=== PATIENT | male | born 1985 | race Caucasian/White ===

== ENCOUNTER 2023-03-28 06:33 | Emergency (ER) | payer BC, SELFPAY ==
--- NOTE | 2023-03-28 06:40 | DI.CT.S_ITS ---
PROCEDURE: CT HEAD/BRAIN WO CON INDICATIONS: HEADACHES, NEW PATTERN TECHNIQUE: Noncontrast 4.5 mm thick angled axial sections acquired from the foramen magnum to the vertex, with coronal and sagittal reformats. For radiation dose reduction, the following was used: automated exposure control, adjustment of mA and/or kV according to patient size. COMPARISON: None. FINDINGS: Image quality: Diagnostic. CSF spaces: Basal cisterns are patent. No extra-axial fluid collections. Ventricles are normal in size and shape. Brain: No midline shift. No intracranial masses or hemorrhage. [place]-white matter interface is normal. Skull and face: Calvarium and visualized facial bones are intact, without suspicious lesions. Sinuses: There is mucous retention cyst in the right ethmoidal sinus. The mastoids are clear. IMPRESSION: 1. No acute intracranial pathology. 2. Right ethmoidal sinus disease. 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 Dictated by: Bri Osborne M.D. on 03/28/2023 at 7:58 Approved by: Bri Osborne M.D. on 03/28/2023 at 7:59
[2023-03-28 06:41] VITALS: BP 140/73; PULSE 68; RESP 16; TEMP 36.3; O2SAT 99; BMI 29.0
--- NOTE | 2023-03-28 06:41 | ED_ITS ---
HPI - General Adult <Radha Ye MD - Last Filed: 03/30/23 18:14> General Chief complaint: Dizziness Stated complaint: tingling sensation left side, dizziness, Time Seen by Provider: 03/28/23 06:34 History of Present Illness HPI narrative: 37-year-old male with no reported past medical history presents by private vehicle from home for headache, intermittent vertigo, nausea, and abnormal sensation on his left-hand side since last night. Patient states that yesterday symptoms were more severe but spontaneously resolved after a short time. As he was driving to work today his symptoms seemed to recurred and so he came to the ER for evaluation. States that he has felt overall generally poorly for the last several months, but yesterday's symptoms are new. He states that his left arm feels ?empty? and tingly. Denies numbness, weakness, blurred vision, syncope, trauma. Related Data Previous Rx's Medication Instructions Recorded meclizine 25 mg chewable tablet 25 mg PO QID PRN dizziness #20 tabs 03/28/23 ondansetron 4 mg disintegrating 4 mg PO QID PRN nausea and 03/28/23 tablet vomiting #10 tabs Allergies Allergy/AdvReac Type Severity Reaction Status Date / Time No Known Drug Allergies Allergy Unverified 09/02/21 17:22 Review of Systems <Radha Ye MD - Last Filed: 03/30/23 18:14> Review of Systems Narrative: Negative except as noted above Patient History <Radha Ye MD - Last Filed: 03/30/23 18:14> Social History Smoking Status: Former smoker Smoking Status: Former smoker Exam <Radha Ye MD - Last Filed: 03/30/23 18:14> Narrative Exam Narrative: Const: Awake, alert, no acute distress, nontoxic appearing Eyes: PERRL, EOMI, conjunctiva normal ENT: Atraumatic, dentition normal, mucous membranes moist, tympanic membranes normal bilaterally Cardiac: regular rate, regular rhythm RESP: unlabored, clear bilaterally, no wheezing GI: Atraumatic, soft, nontender, nondistended, no rebound, no guarding MSK: Atraumatic, full range of motion, pulses equal Skin: Warm, Dry, intact, no rashes Neuro: AO x3, CN II-XII grossly intact, moves all extremities, gait normal Psych: affect normal, mood normal, not suicidal, not homicidal Initial Vital Signs Initial Vital Signs: Vital Signs Temperature 97.4 F L 03/28/23 06:41 Pulse Rate 68 03/28/23 06:41 Respiratory Rate 16 03/28/23 06:41 Blood Pressure 140/73 03/28/23 06:41 Pulse Oximetry 99 03/28/23 06:41 Oxygen Delivery Method Room Air 03/28/23 06:41 <Radha Lutz DO - Last Filed: 03/28/23 08:26> Initial Vital Signs Initial Vital Signs: Vital Signs Temperature 97.4 F L 03/28/23 06:41 Pulse Rate 68 03/28/23 06:41 Respiratory Rate 16 03/28/23 06:41 Blood Pressure 140/73 03/28/23 06:41 Pulse Oximetry 99 03/28/23 06:41 Oxygen Delivery Method Room Air 03/28/23 06:41 Course <Radha Ye MD - Last Filed: 03/30/23 18:14> Orders Ordered: Discontinued Medications Sodium Chloride (Normal Saline 0.9%) 1,000 mls @ 1,000 mls/hr IV BOLUS ONE Stop: 03/28/23 07:39 Last Infusion: 03/28/23 08:11 Dose: Infused Documented By: Admin: 03/28/23 06:56 Dose: 1,000 mls/hr Documented By: Meclizine HCl (Meclizine Hcl 12.5 Mg Tablet) 50 mg PO NOW ONE Stop: 03/28/23 06:41 Last Admin: 03/28/23 06:55 Dose: 50 mg Documented By: AB Ondansetron HCl (Ondansetron 4 Mg/2 Ml Inj) 4 mg IV NOW ONE Stop: 03/28/23 06:41 Last Admin: 03/28/23 06:55 Dose: 4 mg Documented By: AB Vital Signs Vital signs: Vital Signs - 8 hr 03/28/23 06:41 03/28/23 07:10 03/28/23 07:30 Temperature 97.4 F L Pulse Rate 68 56 L 53 L Respiratory Rate 16 Blood Pressure 140/73 Pulse Oximetry 99 99 99 Oxygen Delivery Method Room Air 03/28/23 07:30 03/28/23 08:00 03/28/23 08:00 Temperature Pulse Rate 56 L Respiratory Rate Blood Pressure 112/69 110/63 Pulse Oximetry 99 Oxygen Delivery Method <Radha Lutz DO - Last Filed: 03/28/23 08:26> Orders Ordered: Discontinued Medications Sodium Chloride (Normal Saline 0.9%) 1,000 mls @ 1,000 mls/hr IV BOLUS ONE Stop: 03/28/23 07:39 Last Infusion: 03/28/23 08:11 Dose: Infused Documented By: Admin: 03/28/23 06:56 Dose: 1,000 mls/hr Documented By: AB Meclizine HCl (Meclizine Hcl 12.5 Mg Tablet) 50 mg PO NOW ONE Stop: 03/28/23 06:41 Last Admin: 03/28/23 06:55 Dose: 50 mg Documented By: AB Ondansetron HCl (Ondansetron 4 Mg/2 Ml Inj) 4 mg IV NOW ONE Stop: 03/28/23 06:41 Last Admin: 03/28/23 06:55 Dose: 4 mg Documented By: AB Vital Signs Vital signs: Vital Signs - 8 hr 03/28/23 06:41 03/28/23 07:10 03/28/23 07:30 Temperature 97.4 F L Pulse Rate 68 56 L 53 L Respiratory Rate 16 Blood Pressure 140/73 Pulse Oximetry 99 99 99 Oxygen Delivery Method Room Air 03/28/23 07:30 03/28/23 08:00 03/28/23 08:00 Temperature Pulse Rate 56 L Respiratory Rate Blood Pressure 112/69 110/63 Pulse Oximetry 99 Oxygen Delivery Method Medical Decision Making <Radha Ye MD - Last Filed: 03/30/23 18:14> Lab Data 03/28/23 07:05 03/28/23 07:05 Labs: Lab Results 03/28/23 Range/Units 07:05 WBC 7.1 (4.5-11.0) X10^3/uL RBC 5.20 (4.5-5.9) X10^6/uL Hgb 16.2 (13.5-17.5) g/dL Hct 47.0 (41-53) % MCV 90.3 (80-100) fL MCH 31.2 (26-34) PG MCHC 34.6 (30-36) % RDW 13.0 (11.6-14.8) % Plt Count 287 (150-400) X10^3/uL Neut % (Auto) 45.3 L (50-75) % Lymph % (Auto) 41.2 H (25-40) % [place] % (Auto) 10.3 (3-14) % Eos % (Auto) 2.6 (2-4) % Baso % (Auto) 0.6 (0-2) % Neut # (Auto) 3200 (6718-5830) /uL Lymph # (Auto) 2900 (7055-2325) /uL [place] # (Auto) 700 (0-900) /uL Eos # (Auto) 200 (0-450) /uL Baso # (Auto) 0 (0-100) /uL Sodium 139 (137-145) mmol/L Potassium 4.1 (3.4-5.1) mmol/L Chloride 106 (98-107) mmol/L Carbon Dioxide 23 (22-32) mmol/L BUN 20 (9-20) mg/dL Creatinine 1.22 (0.66-1.25) mg/dL Estimated GFR > 60 (>60) mL/min BUN/Creatinine Ratio 16.4 (6-22) Glucose 95 (70-100) mg/dL Calcium 9.4 (8.4-10.2) mg/dL Total Bilirubin 0.5 (0.2-1.3) mg/dL AST 35 (17-59) IU/L ALT 44 (<50) IU/L Alkaline Phosphatase 95 (38-126) U/L Total Protein 7.8 (6.3-8.2) g/dL Albumin 4.2 (3.5-5.0) g/dL Globulin 3.6 (1.7-4.1) g/dL Albumin/Globulin Ratio 1.2 (1.0-2.8) TSH 1.92 (0.47-4.68) uIU/mL Urine Color Yellow Urine Appearance Clear Urine pH 5.5 (4.5-8.0) Ur Specific [place] 1.025 (1.000-1.035) Urine Protein Negative (Negative) Urine Glucose (UA) Negative (Negative) g/dL Urine Ketones Negative (NEGATIVE) Urine Occult Blood Negative (Negative) Urine Nitrate Negative (Negative) Urine Bilirubin Negative (NEGATIVE) Urine Urobilinogen 0.2 (0.2) E.U./dL Ur Leukocyte Esterase Negative (NEGATIVE) Urine RBC None seen (0-5/HPF) Urine WBC None seen (0-5/HPF) Ur Squamous Epith Cells None seen (0-5/HPF) Urine Bacteria None seen (None) Ur Culture Indicated? Cult not indicated Vol Urine Centrifuged 10ml (spun) Urine Dip Bedside Urine Glucose Negative Bedside Urine Bilirubin - Negative Bedside Urine Ketone - Negative Urine Specific [place] 1.030 Bedside Urine Occult Blood - Negative Bedside Urine pH 6.0 Bedside Urine Protein - Negative Bedside Urine Urobilinogen - Negative Bedside Urine Nitrite - Negative Bedside Urine Leukocytes - Negative Esterase Point of care testing: Urine Dip Bedside Urine Glucose Negative Bedside Urine Bilirubin - Negative Bedside Urine Ketone - Negative Urine Specific [place] 1.030 Bedside Urine Occult Blood - Negative Bedside Urine pH 6.0 Bedside Urine Protein - Negative Bedside Urine Urobilinogen - Negative Bedside Urine Nitrite - Negative Bedside Urine Leukocytes - Negative Esterase MDM Narrative Medical decision making narrative: Well-appearing patient with headache, vertigo, nausea, left upper extremity ?empty sensation. On exam patient's NIH score is 0, he has intact sensation, no ataxia, gait is normal, no weakness. Since he was complaining of abnormal pattern of headaches we will order a CT scan of the brain and we will order basic lab work. IV fluids, Zofran, meclizine to be ordered for patient's symptoms. Care of patient signed to Dr. Lutz at 0700. <Radha Lutz, DO - Last Filed: 03/28/23 08:26> Lab Data Labs: Lab Results 03/28/23 Range/Units 07:05 WBC 7.1 (4.5-11.0) X10^3/uL RBC 5.20 (4.5-5.9) X10^6/uL Hgb 16.2 (13.5-17.5) g/dL Hct 47.0 (41-53) % MCV 90.3 (80-100) fL MCH 31.2 (26-34) PG MCHC 34.6 (30-36) % RDW 13.0 (11.6-14.8) % Plt Count 287 (150-400) X10^3/uL Neut % (Auto) 45.3 L (50-75) % Lymph % (Auto) 41.2 H (25-40) % [place] % (Auto) 10.3 (3-14) % Eos % (Auto) 2.6 (2-4) % Baso % (Auto) 0.6 (0-2) % Neut # (Auto) 3200 (2290-3979) /uL Lymph # (Auto) 2900 (4824-8666) /uL [place] # (Auto) 700 (0-900) /uL Eos # (Auto) 200 (0-450) /uL Baso # (Auto) 0 (0-100) /uL Sodium 139 (137-145) mmol/L Potassium 4.1 (3.4-5.1) mmol/L Chloride 106 (98-107) mmol/L Carbon Dioxide 23 (22-32) mmol/L BUN 20 (9-20) mg/dL Creatinine 1.22 (0.66-1.25) mg/dL Estimated GFR > 60 (>60) mL/min BUN/Creatinine Ratio 16.4 (6-22) Glucose 95 (70-100) mg/dL Calcium 9.4 (8.4-10.2) mg/dL Total Bilirubin 0.5 (0.2-1.3) mg/dL AST 35 (17-59) IU/L ALT 44 (<50) IU/L Alkaline Phosphatase 95 (38-126) U/L Total Protein 7.8 (6.3-8.2) g/dL Albumin 4.2 (3.5-5.0) g/dL Globulin 3.6 (1.7-4.1) g/dL Albumin/Globulin Ratio 1.2 (1.0-2.8) TSH 1.92 (0.47-4.68) uIU/mL Urine Color Yellow Urine Appearance Clear Urine pH 5.5 (4.5-8.0) Ur Specific [place] 1.025 (1.000-1.035) Urine Protein Negative (Negative) Urine Glucose (UA) Negative (Negative) g/dL Urine Ketones Negative (NEGATIVE) Urine Occult Blood Negative (Negative) Urine Nitrate Negative (Negative) Urine Bilirubin Negative (NEGATIVE) Urine Urobilinogen 0.2 (0.2) E.U./dL Ur Leukocyte Esterase Negative (NEGATIVE) Urine RBC None seen (0-5/HPF) Urine WBC None seen (0-5/HPF) Ur Squamous Epith Cells None seen (0-5/HPF) Urine Bacteria None seen (None) Ur Culture Indicated? Cult not indicated Vol Urine Centrifuged 10ml (spun) Urine Dip Bedside Urine Glucose Negative Bedside Urine Bilirubin - Negative Bedside Urine Ketone - Negative Urine Specific [place] 1.030 Bedside Urine Occult Blood - Negative Bedside Urine pH 6.0 Bedside Urine Protein - Negative Bedside Urine Urobilinogen - Negative Bedside Urine Nitrite - Negative Bedside Urine Leukocytes - Negative Esterase Point of care testing: Urine Dip Bedside Urine Glucose Negative Bedside Urine Bilirubin - Negative Bedside Urine Ketone - Negative Urine Specific [place] 1.030 Bedside Urine Occult Blood - Negative Bedside Urine pH 6.0 Bedside Urine Protein - Negative Bedside Urine Urobilinogen - Negative Bedside Urine Nitrite - Negative Bedside Urine Leukocytes - Negative Esterase Imaging Data CT scan - head: Radiologist's Impression: Prelim overnight Radiology read no acute intracranial abnormality, ethmoid sinus disease. [facility] Narrative Medical decision making narrative: Well-appearing patient with headache, vertigo, nausea, left upper extremity ?empty sensation. On exam patient's NIH score is 0, he has intact sensation, no ataxia, gait is normal, no weakness. Since he was complaining of abnormal pattern of headaches we will order a CT scan of the brain and we will order basic lab work. IV fluids, Zofran, meclizine to be ordered for patient's symptoms. Care of patient signed to Dr. Lutz at 0700. 03/28/23 Nelda: Patient signed out to myself by Dr. Ye. Patient seen and evaluated by myself. Patient is on bupropion but no other regular medications did stopped smoking several days ago but not using any adjuncts. No prior surgeries, no known drug allergies besides a topical antifungal. Recent sensation of tobacco use, no regular alcohol use, no IV drugs or recreational drugs. He is accompanied by his . Head CT shows ethmoid sinus disease but no other acute change. Labs CBC shows normal white count hemoglobin of 16 platelets of 287, predominance lymphocyte percentage. CMP shows no acute change. TSH is normal UA shows no acute change. Patient is feeling improved after fluids, Zofran and meclizine. He notes he has had a little bit of vertigo type symptoms in the past but much milder in his labs or electrolytes were all off at that time. Otherwise has NIH score of 0 with abnormal pattern of headaches and head CT was found to be negative except for some ethmoid sinus disease which I reviewed with patient. No acute neurologic changes patient is felt appropriate for discharge home. Plan for follow up with primary as necessary, reviewed return precautions. Discharge Plan Departure Patient Disposition: Home Clinical Impression: Vertigo Instructions: DI for Vertigo Activity Restrictions/Additional Instructions: Follow up with primary care if your symptoms are persisting or not resolving. Please call to set up an appointment as needed. You may take Zofran 1 tablet every 6 hours as needed for nausea. You may take meclizine 1-2 tablets every 6 hours as needed for dizziness or vertigo symptoms. There is an [id number] version available as well but a prescription was sent for this. Prescription [facility] in [place]. Please return for severe headaches, new weakness, loss of sensation, difficulty or inability to ambulate safely, sudden vision changes, difficulty with speech, persistent vomiting other new or concerning symptoms. Prescriptions: New ondansetron 4 mg tablet,disintegrating 4 mg PO QID PRN (Reason: nausea and vomiting) Qty: 10 0RF meclizine 25 mg tablet,chewable 25 mg PO QID PRN (Reason: dizziness) Qty: 20 0RF Rx Instructions: You may take 1-2 tablets every 6 hours as needed for dizziness/vertigo symptoms. Referrals: Miscellaneous,Doctor, MD [Primary Care Provider] - Stand Alone Forms: Patient Portal/API
[2023-03-28] MEDS: MECLIZINE HCL 12.5 MG TABLET 50 MG PO (06:55)
[2023-03-28] MEDS: ONDANSETRON 4 MG/2 ML INJ IV (06:55)
[2023-03-28] MEDS: SODIUM CHLORIDE 0.9% 1,000 ML 1000 ML IV (06:56)
[2023-03-28 07:08] LABS: Add Manual Diff / Slide Review NO; Basophils Absolute Auto 0 /uL (0-100); Basophils Percent Auto 0.6 % (0-2); Eosinophils Absolute Auto 200 /uL (0-450); Eosinophils Percent Auto 2.6 % (2-4); Hemoglobin 16.2 g/dL (13.5-17.5); Lymphocytes Absolute Auto 2900 /uL (1100-4500); Lymphocytes Percent Auto 41.2 % (25-40); Mean Corpuscular HGB Conc 34.6 % (30-36); Mean Corpuscular Hemoglobin 31.2 PG (26-34); Mean Corpuscular Volume 90.3 fL (80-100); Monocytes Absolute Auto 700 /uL (0-900); Monocytes Percent Auto 10.3 % (3-14); Neutrophils Absolute Auto 3200 /uL (1500-7000); Neutrophils Percent Auto 45.3 % (50-75); Platelet Count 287 X10^3/uL (150-400); White Blood Cell Count 7.1 X10^3/uL (4.5-11.0)
[2023-03-28 07:09] LABS: Appearance Urine UA CLEAR; Bilirubin Urine UA NEGATIVE (NEGATIVE); Color Urine UA YELLOW; Glucose Urine UA NEGATIVE (Negative); Ketones Urine UA NEGATIVE (NEGATIVE); Leukocyte Esterase Urine UA NEGATIVE (NEGATIVE); Nitrite Urine UA NEGATIVE (Negative); Occult Blood Urine UA NEGATIVE (Negative); Protein Urine UA NEGATIVE (Negative); Specific Gravity Urine UA 1.025 (1.000-1.035); Urobilinogen Urine UA 0.2 E.U./dL (0.2); pH Urine UA 5.5 (4.5-8.0)
[2023-03-28 07:10] VITALS: PULSE 56; O2SAT 99
[2023-03-28 07:17] LABS: Urine Volume 10mL (spun)
[2023-03-28 07:18] LABS: Bacteria Urine None Seen; Culture Indicated Urine Cult Not Indicated; RBC Urine None Seen (0-5/HPF); Squamous Epithelial Cell Urine None Seen (0-5/HPF); WBC Urine None Seen (0-5/HPF)
[2023-03-28 07:23] LABS: Alanine Aminotransferase 44 IU/L (<50); Albumin 4.2 g/dL (3.5-5.0); Albumin Globulin Ratio 1.2 (1.0-2.8); Alkaline Phosphatase 95 U/L (38-126); Aspartate Aminotransferase 35 IU/L (17-59); BUN Creatinine Ratio 16.4 (6-22); Bilirubin Total 0.5 mg/dL (0.2-1.3); Blood Urea Nitrogen 20 mg/dL (9-20); Calcium 9.4 mg/dL (8.4-10.2); Carbon Dioxide 23 mmol/L (22-32); Chloride 106 mmol/L (98-107); Estimated Glomerular Filt Rate > 60 mL/min (>60); Globulin 3.6 g/dL (1.7-4.1); Glucose 95 mg/dL (70-100); HEMOLYSIS 24 (0-50); Potassium 4.1 mmol/L (3.4-5.1); Sodium 139 mmol/L (137-145); Total Protein 7.8 g/dL (6.3-8.2)
[2023-03-28 07:30] VITALS: BP 112/69; PULSE 53; O2SAT 99
[2023-03-28 07:53] LABS: Thyroid Stimulating Hormone 1.92 uIU/mL (0.47-4.68)
[2023-03-28 08:00] VITALS: BP 110/63; PULSE 56; O2SAT 99
== END 2023-03-28 08:19 | disposition home or self-care (01) ==
PROVIDERS: Emergency Medicine; Emergency Provider Emergency Medicine
DX: R51.9 Headache, unspecified (principal); R42 Dizziness and giddiness; R11.0 Nausea
CPT/HCPCS: 36415; 70450; 80053; 81001; 81003; 84443; 85025; 96374; 99284; J2405

== ENCOUNTER 2023-09-19 17:45 | Emergency (ER) | payer SELFPAY ==
[2023-09-19] VITALS (9 sets, daily range): BP systolic 131–139; BP diastolic 65–81; PULSE 55–66; RESP 15–29; TEMP 36.6; O2SAT 98–100; BMI 28.0
--- NOTE | 2023-09-19 18:02 | DI.RAD.S_ITS ---
PROCEDURE: XR CHEST 1V INDICATIONS: chest pain TECHNIQUE: One view of the chest was acquired. COMPARISON: None. FINDINGS: Surgical changes and devices: None. Lungs and pleura: Lungs are clear. No pleural effusions or pneumothorax. Mediastinum: Mediastinal contours appear normal. Heart size is normal. Bones and chest wall: No suspicious bony lesions. Overlying soft tissues appear unremarkable. IMPRESSION: No acute cardiopulmonary abnormality is seen. Dictated by: Jesús Dougherty M.D. on 09/19/2023 at 18:22 Approved by: Jesús Dougherty M.D. on 09/19/2023 at 18:22
[2023-09-19 18:23] LABS: INR 1.1 (0.9-1.3); Prothrombin Time 12.2 SECONDS (9.4-12.5)
[2023-09-19 18:26] LABS: PTT Partial Thromboplastin Tim 40 SECONDS (25.1-36.5)
[2023-09-19 18:27] LABS: Alanine Aminotransferase 42 IU/L (<50); Albumin 4.6 g/dL (3.5-5.0); Albumin Globulin Ratio 1.4 (1.0-2.8); Alkaline Phosphatase 83 U/L (38-126); Aspartate Aminotransferase 28 IU/L (17-59); BUN Creatinine Ratio 11.6 (6-22); Bilirubin Total 0.6 mg/dL (0.2-1.3); Blood Urea Nitrogen 16 mg/dL (9-20); Calcium 9.4 mg/dL (8.4-10.2); Carbon Dioxide 22 mmol/L (22-32); Chloride 107 mmol/L (98-107); Creatine Kinase 48 U/L (55-170); Estimated Glomerular Filt Rate > 60 mL/min (>60); Globulin 3.4 g/dL (1.7-4.1); Glucose 98 mg/dL (70-100); HEMOLYSIS < 15 (0-50); Lipase 76 U/L (23-300); Magnesium 2.3 mg/dL (1.6-2.3); Potassium 4.1 mmol/L (3.4-5.1); Sodium 137 mmol/L (137-145)
[2023-09-19 18:28] LABS: Add Manual Diff / Slide Review NO; Basophils Absolute Auto 0 /uL (0-100); Basophils Percent Auto 0.5 % (0-2); Eosinophils Absolute Auto 100 /uL (0-450); Eosinophils Percent Auto 0.9 % (2-4); Hematocrit 46.6 % (41-53); Lymphocytes Absolute Auto 2500 /uL (1100-4500); Lymphocytes Percent Auto 33.1 % (25-40); Mean Corpuscular HGB Conc 34.4 % (30-36); Mean Corpuscular Hemoglobin 31.3 PG (26-34); Monocytes Absolute Auto 600 /uL (0-900); Monocytes Percent Auto 7.4 % (3-14); Neutrophils Absolute Auto 4400 /uL (1500-7000); Neutrophils Percent Auto 58.1 % (50-75); Platelet Count 305 X10^3/uL (150-400); Red Blood Cell Count 5.12 X10^6/uL (4.5-5.9); Red Cell Distribution Width 13.1 % (11.6-14.8); White Blood Cell Count 7.5 X10^3/uL (4.5-11.0)
[2023-09-19 18:39] LABS: NT-proBNP (BNP-Adult 18+) 21 pg/mL (<125); Troponin I < 0.012 ng/mL (0.01-0.034)
--- NOTE | 2023-09-19 18:43 | EKG_ITS ---
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
--- NOTE | 2023-09-19 20:10 | PC.NURSE ---
Upon assessment the patient reports no pain but states that he has waves or episodes of what feels like heartburn, he says that he feels theres air in there while referencing to his abdomen, it also feels like I'm hungry. Patients vital signs are stable and he is NSR on tele. This RN gave the patient a warm blanket and his call light is in reach.
--- NOTE | 2023-09-19 20:23 | ED.GENADULT ---
HPI - General Adult General Chief complaint: Abdominal Pain Stated complaint: [facility]; GI Issues, Poss Ulcer, Cardiac Concerns Time Seen by Provider: 09/19/23 19:58 Source: patient, RN notes reviewed and old records reviewed Mode of arrival: Ambulatory Limitations: no limitations History of Present Illness HPI narrative: 37-year-old male with a history of GERD, chronic tobacco use just stopped chewing. Patient presents with complaint of 5 days of epigastric pain radiating up to his chest into his back. He states it is sort of waxes and wanes in intensity. Has a resolved at times. Sometimes food makes it better sometimes food makes it worse. He states nothing has resolved at this time. He has been off of his omeprazole which he has restarted. Patient has had had any syncope, no fevers or chills, no cold cough or congestion. Did vomit once today which is atypical. Has not had any additional episodes but has not had anything to eat or drink today. States bowel movements have been contact but happening in the last few days. Denies any urinary symptoms. No numbness tingling or weakness otherwise. He is also weaned down on his bupropion. He has not on any prescription medications. He is scheduled to see Gastroenterology in October for possible EGD. 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 Sees Dr. Willie Moore his primary care physician Related Data Home Medications Medication Instructions Recorded Confirmed bupropion HCl 75 mg tablet 75 mg PO BID 09/19/23 09/19/23 nicotine (polacrilex) 2 mg buccal mg PO 09/19/23 09/19/23 lozenge nicotine 14 mg/24 hr daily 1 patch topical DAILY 09/19/23 09/19/23 transdermal patch omeprazole 20 mg capsule,delayed 20 mg PO DAILY 09/19/23 09/19/23 release valacyclovir 500 mg tablet 500 mg PO DAILY 09/19/23 09/19/23 Previous Rx's Medication Instructions Recorded omeprazole 40 mg capsule,delayed 40 mg PO DAILY #30 caps 09/19/23 release Allergies Allergy/AdvReac Type Severity Reaction Status Date / Time No Known Drug Allergies Allergy Unverified 09/19/23 17:17 Review of Systems Review of Systems ROS Unobtainable: All systems reviewed & are unremarkable except as noted in HPI and below Patient History Social History Smoking Status: Former smoker Smoking Status: Former smoker Substance Use Type: does not use Exam Narrative Exam Narrative: GENERAL: Alert and oriented x three, well-appearing male in mild distress. HEENT: Head normocephalic, atraumatic, EOMI, pupils reactive, face symmetric, moist mucous membranes NECK: Supple, full range of motion CARDIOVASCULAR: Regular rate and rhythm without murmurs, rubs or gallops. No JVD. No edema bilateral lower extremities. RESPIRATORY: Breath sounds equal bilaterally, no wheezes rales or rhonchi. ABDOMEN: Soft, nontender. Normoactive bowel sounds all 4 quadrants. No guarding or rebound, rigidity, no mass, no pulsatile mass or bruit. : No CVA tenderness EXTREMITIES: Normal range of motion, no clubbing or edema. Neurovascularly intact NEUROLOGICAL: Cranial nerves II through XII grossly intact. Moving all extremities SKIN: Warm, dry, no petechiae, no rashes or lesions. Initial Vital Signs Initial Vital Signs: Vital Signs Temperature 97.8 F 09/19/23 17:53 Pulse Rate 66 09/19/23 17:53 Respiratory Rate 18 09/19/23 17:53 Blood Pressure 139/65 09/19/23 17:53 Pulse Oximetry 98 09/19/23 17:53 Oxygen Delivery Method Room Air 09/19/23 17:53 Course Orders Ordered: ED Orders 09/19/23 21:08 CT angio chest abdomen pelvis Stat Discontinued Medications Sodium Chloride (Normal Saline 0.9%) 1,000 mls @ 1,000 mls/hr IV BOLUS ONE Stop: 09/19/23 22:08 Last Infusion: 09/19/23 22:05 Dose: Infused Documented By: Admin: 09/19/23 21:12 Dose: 1,000 mls/hr Documented By: QUINTON Ondansetron HCl (Ondansetron 4 Mg/2 Ml Inj) 4 mg IV NOW ONE Stop: 09/19/23 21:09 Last Admin: 09/19/23 21:12 Dose: 4 mg Documented By: QUINTON Vital Signs Vital signs: Vital Signs - 8 hr 09/19/23 21:47 09/19/23 21:48 09/19/23 21:48 Pulse Rate 64 61 Respiratory Rate 29 H 17 Blood Pressure 136/71 Pulse Oximetry 99 99 09/19/23 22:00 09/19/23 22:00 Pulse Rate 57 L Respiratory Rate 15 Blood Pressure 136/72 Pulse Oximetry 100 Medical Decision Making Lab Data 09/19/23 18:00 09/19/23 18:00 Labs: Lab Results 09/19/23 Range/Units 18:00 WBC 7.5 (4.5-11.0) X10^3/uL RBC 5.12 (4.5-5.9) X10^6/uL Hgb 16.0 (13.5-17.5) g/dL Hct 46.6 (41-53) % MCV 91.0 (80-100) fL MCH 31.3 (26-34) PG MCHC 34.4 (30-36) % RDW 13.1 (11.6-14.8) % Plt Count 305 (150-400) X10^3/uL Neut % (Auto) 58.1 (50-75) % Lymph % (Auto) 33.1 (25-40) % [place] % (Auto) 7.4 (3-14) % Eos % (Auto) 0.9 L (2-4) % Baso % (Auto) 0.5 (0-2) % Neut # (Auto) 4400 (1671-4220) /uL Lymph # (Auto) 2500 (1521-7758) /uL [place] # (Auto) 600 (0-900) /uL Eos # (Auto) 100 (0-450) /uL Baso # (Auto) 0 (0-100) /uL PT 12.2 (9.4-12.5) SECONDS INR 1.1 (0.9-1.3) APTT 40 H (25.1-36.5) SECONDS Sodium 137 (137-145) mmol/L Potassium 4.1 (3.4-5.1) mmol/L Chloride 107 (98-107) mmol/L Carbon Dioxide 22 (22-32) mmol/L BUN 16 (9-20) mg/dL Creatinine 1.38 H (0.66-1.25) mg/dL Estimated GFR > 60 (>60) mL/min BUN/Creatinine Ratio 11.6 (6-22) Glucose 98 (70-100) mg/dL Calcium 9.4 (8.4-10.2) mg/dL Magnesium 2.3 (1.6-2.3) mg/dL Total Bilirubin 0.6 (0.2-1.3) mg/dL AST 28 (17-59) IU/L ALT 42 (<50) IU/L Alkaline Phosphatase 83 (38-126) U/L Total Creatine Kinase 48 L (55-170) U/L Troponin I < 0.012 (0.01-0.034) ng/mL NT-Pro-B Natriuret Pep 21 (<125) pg/mL Total Protein 8.0 (6.3-8.2) g/dL Albumin 4.6 (3.5-5.0) g/dL Globulin 3.4 (1.7-4.1) g/dL Albumin/Globulin Ratio 1.4 (1.0-2.8) Lipase 76 (23-300) U/L Urine Dip Bedside Urine Glucose Negative Bedside Urine Bilirubin - Negative Bedside Urine Ketone - Negative Urine Specific [place] 1.015 Bedside Urine Occult Blood - Negative Bedside Urine pH 6.0 Bedside Urine Protein - Negative Bedside Urine Urobilinogen - Negative Bedside Urine Nitrite - Negative Bedside Urine Leukocytes - Negative Esterase Point of care testing: Urine Dip Bedside Urine Glucose Negative Bedside Urine Bilirubin - Negative Bedside Urine Ketone - Negative Urine Specific [place] 1.015 Bedside Urine Occult Blood - Negative Bedside Urine pH 6.0 Bedside Urine Protein - Negative Bedside Urine Urobilinogen - Negative Bedside Urine Nitrite - Negative Bedside Urine Leukocytes - Negative Esterase Imaging Data Chest x-ray: Radiologist's Impression: [address] [address] XRay Report Signed Patient: Lee Gonzalez MR#: [id number] : 1985 Acct:[id number] Age/Sex: 37 / M Date of Service: 09/19/23 Loc: ED Accession Number: [id number] Procedure: XR chest 1V Ordering Provider: Radha Lutz D.O. PROCEDURE: XR CHEST 1V INDICATIONS: chest pain TECHNIQUE: One view of the chest was acquired. COMPARISON: None. FINDINGS: Surgical changes and devices: None. Lungs and pleura: Lungs are clear. No pleural effusions or pneumothorax. Mediastinum: Mediastinal contours appear normal. Heart size is normal. Bones and chest wall: No suspicious bony lesions. Overlying soft tissues appear unremarkable. IMPRESSION: No acute cardiopulmonary abnormality is seen. Dictated by: Jesús Dougherty M.D. on 09/19/2023 at 18:22 Approved by: Jesús Dougherty M.D. on 09/19/2023 at 18:22 CT angio chest/abd/pelvis: Radiologist's Impression: Close Chest/Abdomen/Pelvis CTA (Signed) Max Purvis - 09/19/23 Chest X-Ray (Signed) Jesús Dougherty - 09/19/23 Launch?[address] [address] [address] Scan Report Signed Patient: Lee Gonzalez MR#: [id number] : 1985 Acct:[id number] Age/Sex: 37 / M Date of Service: 09/19/23 Loc: ED Accession Number: [id number] Procedure: CT angio chest abdomen pelvis Ordering Provider: Radha Lutz D.O. PROCEDURE: CT ANGIO CHEST ABDOMEN PELVIS INDICATIONS: chest/epigastric pain to back x days. TECHNIQUE: Precontrast 5 mm thick sections acquired from the lung apices to the iliac crests. After the administration of intravenous contrast, 2.5 mm thick sections again acquired from the lung apices to the iliac crests. Maximum intensity projection (MIP) oblique sagittal and coronal reformats were then acquired. For radiation dose reduction, the following was used: automated exposure control. COMPARISON: None. FINDINGS: Image quality: Diagnostic. AORTA: No aortic aneurysm. No acute aortic syndrome. CHEST: Lower Neck: No enlarged lymph nodes. Thyroid: No thyroid nodules which require sonographic evaluation. Axillae: No enlarged lymph nodes. Chest Wall: Unremarkable. Lungs and Pleura: No pneumothorax or pleural effusions. No consolidation or suspicious nodules. Heart: Heart size is normal. No pericardial effusion. Thoracic Vessels: Pulmonary arteries demonstrate normal size. Mediastinum and [place]: No enlarged lymph nodes. Esophagus: No wall thickening. No hiatal hernia. ABDOMEN: Liver: No solid mass. Gallbladder: No radiopaque gallstones or wall thickening. Biliary ducts: No biliary dilation. Pancreas: No ductal dilation. Spleen: Size is within normal limits. Adrenal Glands: No adrenal nodules. Kidneys and Ureters: No hydronephrosis. No solid mass. No complex renal cystic lesion which requires follow up. Stomach and Bowel: Normal colonic caliber, without significant wall thickening. Peritoneum: No abnormal intraperitoneal fluid. No free air. Ventral Wall: No hernia. Abdominal Nodes: No retroperitoneal or mesenteric adenopathy by size criteria. Vessels: Inferior vena cava is normal in size. PELVIS: Pelvic Organs: Unremarkable. Bladder: Unremarkable. Pelvic Nodes: No enlarged lymph nodes. Miscellaneous: No inguinal hernias are seen. Bones: Unremarkable. IMPRESSION: No acute abnormality. Dictated by: Max Purvis M.D. on 09/19/2023 at 21:46 Approved by: Max Purvis M.D. on 09/19/2023 at 21:51 ECG Data Interpretation: EKG shows sinus bradycardia with a rate of 57 DC 162 QRS 84 QTC of 381, no acute ST changes appreciated.? Patient has prior from 11/06/2010 appears similar with no acute ST changes. MDM Narrative Medical decision making narrative: 37-year-old male from walk-in clinic for epigastric pain nausea vomiting concern for cardiac source patient noted that he had had had pain use before which seemed to increase things. Has been referred to GI but not scheduled until October 19. Patient's pain is epigastric radiates up to his chest to his back, he has not had a prior EGD, does note seems to be better or worse with food but has not resolved over the past few days. Reviewed findings with patient today, we will obtain CT angio dissection protocol. Labs show white count of 7.5 hemoglobin 16 platelets of 305, INR normal, creatinine is 1.38 was 1.22 biliary 2023, sodium 137 potassium 4.1 chloride of 107 CO2 of 22 BUN, glucose is 98 calcium 9.4 with a Mag of LFTs are negative, total CK is 48, troponins less than 0.012 with a lipase is 76. Point of care urine shows no acute change. Chest x-ray shows no acute change. EKG shows sinus bradycardia with a rate of 57 DC 162 QRS 84 QTC of 381, no acute ST changes appreciated.? Patient has prior from 11/06/2010 appears similar with no acute ST changes. CT angio shows no acute change, no dissection or other acute abnormality. Patient is already set up for gastroenterology for scope in the next month. He has been off his omeprazole so we will have him restart this he was taking 20 mg so we will have him take 40 mg daily. Discussed return precautions all questions answered. Discharge Plan Departure Patient Disposition: Home Clinical Impression: Abdominal pain, epigastric Activity Restrictions/Additional Instructions: Follow up as needed, I do think you would benefit from having an EGD. You can reach out to Gastroenterology to see if they can see you sooner than October. I would recommend taking omeprazole 40 mg daily, take this for the next 4-6 weeks. A prescription for 40 mg was sent to [facility]. You can fill this if you need additional beyond the prescription you have available. You can use [facility] [id number] as needed. Please return for rapidly worsening symptoms, fevers, passing out, new or worsening chest pain or shortness of breath, persistent vomiting, black or bloody stools or other new or concerning changes. Prescriptions: New omeprazole 40 mg capsule,delayed release(DR/EC) 40 mg PO DAILY Qty: 30 0RF No Action omeprazole 20 mg capsule,delayed release(DR/EC) 20 mg PO DAILY valacyclovir 500 mg tablet 500 mg PO DAILY bupropion HCl 75 mg tablet 75 mg PO BID nicotine (polacrilex) 2 mg lozenge PO nicotine 14 mg/24 hr patch 24 hour 1 patch topical DAILY Referrals: Miscellaneous,Doctor, MD [Primary Care Provider] - Stand Alone Forms: Patient Portal/API
--- NOTE | 2023-09-19 21:08 | DI.CT.S_ITS ---
PROCEDURE: CT ANGIO CHEST ABDOMEN PELVIS INDICATIONS: chest/epigastric pain to back x days. TECHNIQUE: Precontrast 5 mm thick sections acquired from the lung apices to the iliac crests. After the administration of intravenous contrast, 2.5 mm thick sections again acquired from the lung apices to the iliac crests. Maximum intensity projection (MIP) oblique sagittal and coronal reformats were then acquired. For radiation dose reduction, the following was used: automated exposure control. COMPARISON: None. FINDINGS: Image quality: Diagnostic. AORTA: No aortic aneurysm. No acute aortic syndrome. CHEST: Lower Neck: No enlarged lymph nodes. Thyroid: No thyroid nodules which require sonographic evaluation. Axillae: No enlarged lymph nodes. Chest Wall: Unremarkable. Lungs and Pleura: No pneumothorax or pleural effusions. No consolidation or suspicious nodules. Heart: Heart size is normal. No pericardial effusion. Thoracic Vessels: Pulmonary arteries demonstrate normal size. Mediastinum and [place]: No enlarged lymph nodes. Esophagus: No wall thickening. No hiatal hernia. ABDOMEN: Liver: No solid mass. Gallbladder: No radiopaque gallstones or wall thickening. Biliary ducts: No biliary dilation. Pancreas: No ductal dilation. Spleen: Size is within normal limits. Adrenal Glands: No adrenal nodules. Kidneys and Ureters: No hydronephrosis. No solid mass. No complex renal cystic lesion which requires follow up. Stomach and Bowel: Normal colonic caliber, without significant wall thickening. Peritoneum: No abnormal intraperitoneal fluid. No free air. Ventral Wall: No hernia. Abdominal Nodes: No retroperitoneal or mesenteric adenopathy by size criteria. Vessels: Inferior vena cava is normal in size. PELVIS: Pelvic Organs: Unremarkable. Bladder: Unremarkable. Pelvic Nodes: No enlarged lymph nodes. Miscellaneous: No inguinal hernias are seen. Bones: Unremarkable. IMPRESSION: No acute abnormality. Dictated by: Max Purvis M.D. on 09/19/2023 at 21:46 Approved by: Max Purvis M.D. on 09/19/2023 at 21:51
[2023-09-19] MEDS: ONDANSETRON 4 MG/2 ML INJ IV (21:12)
[2023-09-19] MEDS: SODIUM CHLORIDE 0.9% 1,000 ML 1000 ML IV (21:12)
== END 2023-09-19 22:16 | disposition home or self-care (01) ==
PROVIDERS: Emergency Provider Emergency Medicine
DX: R10.13 Epigastric pain (principal); R07.9 Chest pain, unspecified; R00.1 Bradycardia, unspecified
CPT/HCPCS: 36415; 71045; 71275; 74174; 80053; 81003; 82550; 83690; 83735; 83880; 84484; 85025; 85610; 85730; 93005; 96361; 96374; 99284; J2405; Q9967

== ENCOUNTER 2024-02-07 13:51 | Emergency (ER) | payer BC, SELFPAY ==
[2024-02-07 14:07] VITALS: BP 131/60; PULSE 70; RESP 18; TEMP 36.9; O2SAT 99; BMI 28.8
--- NOTE | 2024-02-07 14:13 | DI.RAD.S_ITS ---
PROCEDURE: XR CHEST 1V INDICATIONS: chest pain TECHNIQUE: One view of the chest was acquired. COMPARISON: [facility], CR, XR CHEST 1V, 09/19/2023, 18:10. FINDINGS: Surgical changes and devices: None. Lungs and pleura: Lungs are clear. No pleural effusions or pneumothorax. Mediastinum: Mediastinal contours appear normal. Heart size is normal. Bones and chest wall: No suspicious bony lesions. Overlying soft tissues appear unremarkable. IMPRESSION: No acute cardiopulmonary abnormality is seen. Dictated by: Scot Sainz M.D. on 02/07/2024 at 14:45 Approved by: Scot Sainz M.D. on 02/07/2024 at 14:46
[2024-02-07 14:19] VITALS: PULSE 68; O2SAT 99
[2024-02-07 14:21] VITALS: BP 141/67; PULSE 64; RESP 23; O2SAT 99
--- NOTE | 2024-02-07 14:22 | EKG_ITS ---
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
[2024-02-07 14:30] VITALS: BP 125/58; PULSE 66; RESP 19; O2SAT 97
--- NOTE | 2024-02-07 14:32 | PC.NURSE ---
Pt states that he is anxious and feels like he might just be having a panic attack. wants his blood drawn to check for any damage he might have done to his heart.
[2024-02-07 14:36] LABS: Add Manual Diff / Slide Review NO; Basophils Absolute Auto 0 /uL (0-100); Basophils Percent Auto 0.4 % (0-2); Eosinophils Absolute Auto 0 /uL (0-450); Eosinophils Percent Auto 0.5 % (2-4); Hematocrit 45.9 % (41-53); Hemoglobin 15.8 g/dL (13.5-17.5); Lymphocytes Absolute Auto 2200 /uL (1100-4500); Lymphocytes Percent Auto 26.4 % (25-40); Mean Corpuscular HGB Conc 34.4 % (30-36); Mean Corpuscular Volume 90.2 fL (80-100); Monocytes Absolute Auto 800 /uL (0-900); Monocytes Percent Auto 8.9 % (3-14); Neutrophils Absolute Auto 5400 /uL (1500-7000); Neutrophils Percent Auto 63.8 % (50-75); Platelet Count 300 X10^3/uL (150-400); Red Blood Cell Count 5.09 X10^6/uL (4.5-5.9); White Blood Cell Count 8.5 X10^3/uL (4.5-11.0)
[2024-02-07 14:43] LABS: INR 1.1 (0.9-1.3); Prothrombin Time 12.2 SECONDS (9.4-12.5)
--- NOTE | 2024-02-07 14:43 | ED_ITS ---
HPI - Arrhythmia/Palpitations General Chief Complaint: Arrhythmia/Palpitations Stated Complaint: Sent from [facility] rule out Cardiac Time Seen by Provider: 02/07/24 14:22 Source: patient Mode of arrival: Ambulatory History of Present Illness HPI narrative: Patient is a 38-year-old male history of severe anxiety, she would reflux presenting today with chest discomfort. He reports that he has been quitting nicotine over the last 1 month he actually has not had any. He was previously chewing he is also smoked some in his life as well. 5 days ago he felt like he had a very bad anxiety attack. He clammy sweaty has hands clamped up felt like he could not breathe. It lasted for about 2 days. Yesterday he felt like he was having some palpitations. No dizziness or lightheadedness. Not having any significant shortness of breath now. Went to the walk-in clinic though was sent to the ED for further evaluation and workup. He does have a primary care provider. He really thinks it is anxiety, but he does not have any triggering factor. Says that the holidays went well for him. Really reports that he gets new insurance tomorrow in his deductible is high and he would like to be seen before the end of the year. He reports he was adopted but recently found out that his biological family does have cardiac disease in the hyperlipidemia but unsure details. Related Data Home Medications Medication Instructions Recorded Confirmed bupropion HCl 75 mg tablet 75 mg PO BID 09/19/23 09/19/23 nicotine (polacrilex) 2 mg buccal mg PO 09/19/23 09/19/23 lozenge nicotine 14 mg/24 hr daily 1 patch topical DAILY 09/19/23 09/19/23 transdermal patch omeprazole 20 mg capsule,delayed 20 mg PO DAILY 09/19/23 09/19/23 release valacyclovir 500 mg tablet 500 mg PO DAILY 09/19/23 09/19/23 Previous Rx's Medication Instructions Recorded omeprazole 40 mg capsule,delayed 40 mg PO DAILY #30 caps 09/19/23 release Allergies Allergy/AdvReac Type Severity Reaction Status Date / Time No Known Drug Allergies Allergy Verified 02/07/24 14:06 Patient History Social History Smoking Status: Former smoker Smoking Status: Former smoker Exam Initial Vital Signs Initial Vital Signs: Vital Signs Temperature 98.5 F 02/07/24 14:07 Pulse Rate 70 02/07/24 14:07 Respiratory Rate 18 02/07/24 14:07 Blood Pressure 131/60 02/07/24 14:07 Pulse Oximetry 99 02/07/24 14:07 Oxygen Delivery Method Room Air 02/07/24 14:07 GENERAL: Alert 30-year-old and in no acute distress. HEENT: Head atraumatic,EOMI, pupils reactive, face symmetric, moist mucous membranes CARDIOVASCULAR: Regular rate and rhythm without murmurs, rubs or gallops. RESPIRATORY: Breath sounds equal bilaterally, no wheezes rales or rhonchi. ABDOMEN: Soft, nontender. Normoactive bowel sounds all 4 quadrants. No guarding or rebound. EXTREMITIES: Normal range of motion, no clubbing or edema. Neurovascularly intact NEUROLOGICAL: Alert and oriented x4.Normal gait and speech. Cranial nerves II through XII grossly intact. SKIN: Warm, dry, no laceration, no petechiae, no rashes or lesions. Scores HEART Score Heart Score history: Slightly Suspicious Heart Score EKG: Normal Heart Score Age: < 45 years old Heart Score risk factors: 1-2 risk factors Heart Score troponin: < or = to normal limit Heart Score Total: 1 Course Orders Ordered: ED Orders 02/07/24 14:13 XR chest 1V Stat EKG-12 Lead Stat 02/07/24 14:30 Complete Blood Count AUTO DIFF Stat Comprehensive Metabolic Panel Stat Lipase Stat Magnesium Stat NT-proBNP (BNP-Adult 18+) Stat PTT Partial Thromboplastin Amandeep Stat Prothrombin Time INR Stat Troponin & CK Cardiac Panel Stat Discontinued Medications Aspirin (Aspirin 81 Mg Chew Tab) 324 mg PO NOW ONE Stop: 02/07/24 14:14 Last Admin: 02/07/24 15:03 Dose: Not Given Vital Signs Vital signs: Vital Signs - 8 hr 02/07/24 14:07 02/07/24 14:19 02/07/24 14:21 Temperature 98.5 F Pulse Rate 70 68 Respiratory Rate 18 Blood Pressure 131/60 141/67 H Pulse Oximetry 99 99 Oxygen Delivery Method Room Air 02/07/24 14:21 02/07/24 14:30 02/07/24 14:30 Temperature Pulse Rate 64 66 Respiratory Rate 23 19 Blood Pressure 125/58 L Pulse Oximetry 99 97 Oxygen Delivery Method Room Air 02/07/24 15:00 02/07/24 15:00 Temperature Pulse Rate 59 L Respiratory Rate 20 Blood Pressure 116/59 L Pulse Oximetry 97 Oxygen Delivery Method MDM - Arrhythmia/Palpitations Lab Data 02/07/24 14:30 02/07/24 14:30 Labs: Lab Results 02/07/24 Range/Units 14:30 WBC 8.5 (4.5-11.0) X10^3/uL RBC 5.09 (4.5-5.9) X10^6/uL Hgb 15.8 (13.5-17.5) g/dL Hct 45.9 (41-53) % MCV 90.2 (80-100) fL MCH 31.0 (26-34) PG MCHC 34.4 (30-36) % RDW 13.0 (11.6-14.8) % Plt Count 300 (150-400) X10^3/uL Neut % (Auto) 63.8 (50-75) % Lymph % (Auto) 26.4 (25-40) % Sierra % (Auto) 8.9 (3-14) % Eos % (Auto) 0.5 L (2-4) % Baso % (Auto) 0.4 (0-2) % Neut # (Auto) 5400 (7510-3341) /uL Lymph # (Auto) 2200 (4330-6771) /uL Sierra # (Auto) 800 (0-900) /uL Eos # (Auto) 0 (0-450) /uL Baso # (Auto) 0 (0-100) /uL PT 12.2 (9.4-12.5) SECONDS INR 1.1 (0.9-1.3) APTT 38 H (25.1-36.5) SECONDS Sodium 139 (137-145) mmol/L Potassium 4.0 (3.4-5.1) mmol/L Chloride 109 H (98-107) mmol/L Carbon Dioxide 21 L (22-32) mmol/L BUN 17 (9-20) mg/dL Creatinine 1.16 (0.66-1.25) mg/dL Estimated GFR > 60 (>60) mL/min BUN/Creatinine Ratio 14.7 (6-22) Glucose 97 (70-100) mg/dL Calcium 9.1 (8.4-10.2) mg/dL Magnesium 2.0 (1.6-2.3) mg/dL Total Bilirubin 0.6 (0.2-1.3) mg/dL AST 53 (17-59) IU/L ALT 115 H (<50) IU/L Alkaline Phosphatase 112 (38-126) U/L Total Creatine Kinase 56 (55-170) U/L Troponin I < 0.012 (0.01-0.034) ng/mL NT-Pro-B Natriuret Pep 38 (<125) pg/mL Total Protein 7.9 (6.3-8.2) g/dL Albumin 4.4 (3.5-5.0) g/dL Globulin 3.5 (1.7-4.1) g/dL Albumin/Globulin Ratio 1.3 (1.0-2.8) Lipase 84 (23-300) U/L Imaging Data Chest x-ray: Radiologist's Impresson: PROCEDURE: XR CHEST 1V INDICATIONS: chest pain TECHNIQUE: One view of the chest was acquired. COMPARISON: [facility], , XR CHEST 1V, 09/19/2023, 18:10. FINDINGS: Surgical changes and devices: None. Lungs and pleura: Lungs are clear. No pleural effusions or pneumothorax. Mediastinum: Mediastinal contours appear normal. Heart size is normal. Bones and chest wall: No suspicious bony lesions. Overlying soft tissues appear unremarkable. IMPRESSION: No acute cardiopulmonary abnormality is seen. Dictated by: Scot Sainz M.D. on 02/07/2024 at 14:45 ECG Data Attestation: I personally reviewed and interpreted this ECG as follows: Interpretation: Normal sinus rhythm rate 64 NV interval 152 QRS [address] changes MDM Narrative Medical decision making narrative: 38-year-old male presenting today with chest discomfort. He has had some ongoing anxiety issues over last couple of days along with some palpitations sounds like he had some carpal spasms as well. No real chest pain today just wants to be evaluated. I do think that this may be related to his anxiety and quitting nicotine. Blood work today is overall reassuring he has a negative troponin Chest x-ray does not show any acute cardiopulmonary process EKGs has been reviewed without any sort of ischemia or evidence of pericarditis Discussed with patient about long-term anxiety medication and to follow up with primary. He understands and agrees Discharge Plan Departure Patient Disposition: Home Clinical Impression: Palpitations, Anxiety Instructions: Anxiety Disorders Activity Restrictions/Additional Instructions: *You have been diagnosed with anxiety atypical chest pain *What to do: At this time I do think her chest pain is probably related to anxiety. I would discuss with the primary care provider in regards to anti anxiety medications *Continue to take medications as directed *Follow up with your primary care provider in 2-3 days or call [phone] *Return to ER if you should have increasing chest pain palpitations difficulty breathing [or] any new, worsening or concerning symptoms Prescriptions: No Action omeprazole 20 mg capsule,delayed release(DR/EC) 20 mg PO DAILY valacyclovir 500 mg tablet 500 mg PO DAILY bupropion HCl 75 mg tablet 75 mg PO BID nicotine (polacrilex) 2 mg lozenge PO nicotine 14 mg/24 hr patch 24 hour 1 patch topical DAILY omeprazole 40 mg capsule,delayed release(DR/EC) 40 mg PO DAILY Qty: 30 0RF Referrals: Miscellaneous,Doctor, [Primary Care Provider] - Stand Alone Forms: Patient Portal/API/Survey
[2024-02-07 14:46] LABS: PTT Partial Thromboplastin Tim 38 SECONDS (25.1-36.5)
[2024-02-07 14:47] LABS: Alanine Aminotransferase 115 IU/L (<50); Albumin 4.4 g/dL (3.5-5.0); Albumin Globulin Ratio 1.3 (1.0-2.8); Alkaline Phosphatase 112 U/L (38-126); Aspartate Aminotransferase 53 IU/L (17-59); BUN Creatinine Ratio 14.7 (6-22); Bilirubin Total 0.6 mg/dL (0.2-1.3); Blood Urea Nitrogen 17 mg/dL (9-20); Calcium 9.1 mg/dL (8.4-10.2); Carbon Dioxide 21 mmol/L (22-32); Chloride 109 mmol/L (98-107); Creatine Kinase 56 U/L (55-170); Estimated Glomerular Filt Rate > 60 mL/min (>60); Globulin 3.5 g/dL (1.7-4.1); Glucose 97 mg/dL (70-100); HEMOLYSIS < 15 (0-50); Lipase 84 U/L (23-300); Sodium 139 mmol/L (137-145); Total Protein 7.9 g/dL (6.3-8.2)
[2024-02-07 14:59] LABS: NT-proBNP (BNP-Adult 18+) 38 pg/mL (<125); Troponin I < 0.012 ng/mL (0.01-0.034)
[2024-02-07 15:00] VITALS: BP 116/59; PULSE 59; RESP 20; O2SAT 97
== END 2024-02-07 15:17 | disposition home or self-care (01) ==
PROVIDERS: Emergency Provider Emergency Medicine
DX: R00.2 Palpitations (principal); F41.9 Anxiety disorder, unspecified; R07.89 Other chest pain
CPT/HCPCS: 36415; 71045; 80053; 82550; 83690; 83735; 83880; 84484; 85025; 85610; 85730; 93005; 99283; 99284